=== PATIENT | female | born 1995 ===

== ENCOUNTER 2017-09-13 07:26 | Emergency (ER) | payer OTHER ==
[~2017-09-13] VITALS: Ht 162.6 cm; Wt 60.0 kg
[2017-09-13] MEDS ORDERED: METR1TAB76 PO (07:35)
[2017-09-13 07:36] VITALS: BP 124/57; PULSE 103; RESP 16; TEMP 98.7; O2SAT 100
[2017-09-13] MEDS ORDERED: SODIUM CHLOR 0.9% 1000 ML INJ 1,000 ML IV ONE (07:45)
[2017-09-13] MEDS ORDERED: SODIUM CHLORIDE 0.9% FLUSH 10 ML FLUSH IVF PRN (07:45)
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
[2017-09-13] MEDS ORDERED: IOHEXOL 350 MG/ML 10 ML VIAL (for RAD DIAG) IVCONTRAST ONE (08:02)
[2017-09-13 08:06] LABS: AUTOMATED NEUTROPHIL # 9.7 TH/MM3 (1.8-7.7); BASOPHIL % 0.2 % (0.0-2.0); EOSINOPHIL % 0.1 % (0.0-4.0); HEMATOCRIT 37.5 % (35.0-46.0); HEMOGLOBIN 12.7 GM/DL (11.6-15.3); LYMPH % 13.5 % (9.0-44.0); LYMPHOCYTE # 1.6 TH/MM3 (1.0-4.8); MEAN CELL VOLUME 86.9 FL (80.0-100.0); MEAN CORPUSCULAR HEMOGLOBIN 29.4 PG (27.0-34.0); MEAN CORPUSCULAR HGB CONC 33.8 % (32.0-36.0); MONOCYTE # 0.6 TH/MM3 (0-0.9); NEUT % 81.2 % (16.0-70.0); PLATELET COUNT 361 TH/MM3 (150-450); RED BLOOD COUNT 4.32 MIL/MM3 (4.00-5.30); RED CELL DISTRIBUTION WIDTH 13.8 % (11.6-17.2); WHITE BLOOD COUNT 11.9 TH/MM3 (4.0-11.0)
[2017-09-13 08:15] LABS: INTERNATIONAL NORMALIZED RATIO 1.1 RATIO; PROTHROMBIN TIME - PATIENT 11.5 SEC (9.8-11.6)
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
[2017-09-13 09:28] VITALS: BP 103/57; PULSE 85; RESP 16; O2SAT 98
[2017-09-13 11:36] VITALS: BP 115/70; PULSE 80; RESP 16; O2SAT 100
== END 2017-09-13 11:37 | disposition home or self-care (01) ==
LOC: NEPC 07:26
DX: S81.812A Laceration without foreign body, left lower leg, initial encounter (principal); R00.0 Tachycardia, unspecified; F17.210 Nicotine dependence, cigarettes, uncomplicated; V49.49XA Driver injured in collision with other motor vehicles in traffic accident, initial encounter; Y92.410 Unspecified street and highway as the place of occurrence of the external cause
CPT/HCPCS: 12001; 70450; 71045; 71260; 72125; 72170; 73564; 73590; 74177; 82435; 82565; 82947; 84132; 84295; 84520; 84702; 85025; 85610; 85730; 86850; 86900; 86901; 96360; 99285; J7030; Q9967